=== PATIENT | male | born 1965 | race Caucasian/White ===

== ENCOUNTER 2016-11-16 06:55 | Day surgery (SDC) | payer OTHER ==
[2016-11-15 12:53] VITALS: BMI 31.8
[2016-11-16 08:31] VITALS: TEMP 97.1
[2016-11-16 09:01] VITALS: BP 107/77; PULSE 82
--- NOTE | 2016-11-18 14:58 | PATH ---
Surgical Pathology Report Patient Name: IVELISSE DOAN [facility]. Rec. #: [id number] /Age/Gender: 1965 (Age: 51) / M Account: [id number] Location: [facility]-ENDOSCOPY Taken: 11/16/2016 Received: 11/16/2016 Reported: 11/18/2016 Physicians: Nahid Quinteros M.D. Specimen(s) Received BX ANAL MASS Clinical History Screening Anal mass Final Diagnosis ANAL MASS, BIOPSY: COLONIC MUCOSA WITH EXTENSIVE ULCERATION AND ASSOCIATED ACUTE INFLAMMATION. NO DEFINITE NEOPLASM IDENTIFIED. Comment: Recommend correlation with clinical findings and follow up as clinically indicated. Electronically Signed Jeffery Lowry M.D. Gross Description Received in formalin, labeled "biopsy anal mass" are 2 bellamy, irregular portions of soft tissue averaging 0.2 cm. in greatest dimension. The specimens are submitted in toto in one cassette. /11/16/201611/16/2016
== END 2016-11-16 09:05 | disposition home or self-care (01) ==
LOC: JASU-ENDO 06:55
PROVIDERS: ATTEND Internal Medicine Gastroenterology
PROC: 0DBP8ZX Excision of Rectum, Via Natural or Artificial Opening Endoscopic, Diagnostic (ICD-10-PCS; principal; 2016-11-16 08:15)
DX: Z12.11 Encounter for screening for malignant neoplasm of colon (principal); K64.4 Residual hemorrhoidal skin tags
CPT/HCPCS: 88305-TC